=== PATIENT | male | born 1945 | race Caucasian/White ===

== ENCOUNTER 2023-07-18 08:58 | Inpatient (IN) | payer OTHER, SELFPAY ==
[2023-07-18] VITALS (15 sets, daily range): BP systolic 86–128; BP diastolic 53–88; BMI 26.6
--- NOTE | 2023-07-18 09:15 | PTCARENOTE ---
Rec'd Pt as transfer form [facility], A,A+O x3. denies pain, awaiting cardiac cath today
[2023-07-18] MEDS: LOPRESSOR 25 MG PO ×2 (10:47→19:58)
[2023-07-18] MEDS: LOW STRENGTH ASPIRIN 81 MG PO (10:47)
--- NOTE | 2023-07-18 11:07 | W.PN.CARDCBS ---
Today's Communication / Plan
-
LHC
PT/OT consults
Impression / Plan
-
This is the H&P summary.
Full H&P scanned into chart.
PCP: Juan J Aponte, DO
CDY: None prior to admission, seen by Dr. Christianson @[facility]
per daughter will f/u with [employer] (he is in [place])
Daughter- Vidya [phone]
HPI: This is a 77 y/o white male, PMH sig for HTN, HLD, DM, Hypothyroid, Parkinson's Disease w/mild ambulatory dysfunction, CKD3a, BPH. Lives in [place] in [place].
Presented to [facility] ER s/p fall at home d/t hypoglycemia, glucose 25. He felt dizzy and fell on his head, sustained right posterior parietal laceration/abrasion as well as right elbow abrasion, EMS was called. Has prior history of falls, but denies any
CP/palps/dyspnea/orthopnea, no syncope or dizziness.
HS troponin was sent with peak 1629. ROXIE noted initially with creat 2.23/GFR 30 (baseline is 1.2/59), now back to baseline. [facility] with severely calcified mid LAD. Loaded with Plavix and transferred today for LAD atherectomy/lithotripsy with stenting.
LHC 2/- severely calcified mid LAD 80-90%
residual non obstructive CAD in LCx, RCA
Echo 07/12- nml LVSF, EF 50-55%, inferoseptal HK, Grade I diastolic dysfunction, mild CLVH, mild dil Ao Root 3.9cm
IMPRESSION/PLAN:
NSTEMI/CAD
severely calcified mid LAD 80-90%- for atherectomy v. lithotripsy with stenting
started on DAPT w/asa, plavix- doses ordered for today
new start metoprolol tartrate 25mg BID
lisinopril held d/t ROXIE- likely can restart in AM if creat stable post dye load
echo results noted
cardiac rehab consult
family wants pt to followup w/[facility] as he's in their system- daughter has referral names and calling to set up followup appointments
ROXIE on CKD3a
creat back to baseline
monitor post dye load in AM
hold lisinopril until labs in AM
HLD- atorvastatin increased to 40mg
check lipid profile in AM
DM- no further hypoglycemia since admission- had been given IV Dexrose at the time
hold metformin 48h post dye load
continue insulins with ISS coverage
check HgbA1C
Parkinson's disease-
mild ambulatory dysfunction, will walk with cane at times
s/p fall with right posterior parietal hematoma/abrasion, right elbow abrasion
may need SNF at d/c- PT/OT consults ordered
case management consulted
continue PD meds
BPH- stable, continue meds
Hypothyroid- stable, continue meds
D/C planning- resides at [facility]
the facility has a SNF/Rehab area that he could go to if needed for a short stay
PT/OT/CM involved
will need transport- daughter is wheelchair bound and lives in [facility]
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
Subjective
Date of Service: July 18, 2023
Physical Exam
Physical Exam
VS: 128/82- 74 SR- 14- 100% RA
AAOx3, MAEE 10/15
RRR S1 S2 no murmurs
CTA bilat, non labored
soft abd, + bs
right radial cath site NURIA, no ht/bleeding, palpable pulse
bilat extremities w/palpable distal pulses, no edema
right posterior parietal HT with healing scabs and abrasion noted, soft golf-ball sized lump, tender but no bleeding or oozing
right elbow with dressing CDI
[2023-07-18] MEDS: PLAVIX 75 MG PO (11:41)
[2023-07-18] MEDS: NSS 516 ML IV (12:38)
[2023-07-18 12:46] LABS: Glucose - Point of Care 123 mg/dl (70-99)
--- NOTE | 2023-07-18 14:12 | CM ---
spoke to pt in room, he is prev indep, lives alone in an indep apt at [facility] in [facility]. PT/OT ordered, await determ. prob placement at [facility], they will have a bed for him. referral faxed by fax machine (not in allscripts). will
update with dc date. pt agreeable to this plan.
[2023-07-18 14:22] LABS: ACT-LR - POC 353 Seconds (116-155)
[2023-07-18 15:07] LABS: ACT-LR - POC 316 Seconds (116-155)
[2023-07-18 15:32] LABS: ACT-LR - POC 313 Seconds (116-155)
--- NOTE | 2023-07-18 15:55 | ITS.CL.ANGIO ---
Trolley Coach Driver - Angioplasty
Angioplasty
Procedure Report:
CARDIAC CATHETERIZATION REPORT
Date of Procedure: 07/18/2023
Referring: Vinny Christianson M.D.
INDICATION: Severely calcified, mid LAD 90% lesion on diagnostic catheterization for NSTEMI.
PROCEDURE:
1. Left-sided coronary angiography.
2. Successful CSI of the densely calcified 90% mid LAD lesion.
3. Successful PCI of the densely calcified 90% mid LAD lesion.
4. Aggressive post dilation of the underexpanded portion of the lesion.
5. Intracoronary lithotripsy.
ACCESS:
7 Angolan slender right radial artery.
CATHETERS:
1. 7 Angolan EBU 3.75 guiding catheter.
HEMODYNAMIC DATA
Weight (kg): 86.0
AO (s/d/x, mmHg): 124/81/99
LV (s/x mmHg): Not obtained.
LEFT VENTRICULOGRAPHY: Not performed.
CORONARY ANGIOGRAPHY
Dominance: Left.
Left Main: Normal size, bifurcating vessel. There is no coronary artery disease.
LAD: Normal size vessel giving rise to 1 notable diagonal. The entire LAD is encased in calcium. The contour of the vessel is visible without contrast injection. There is a densely calcified, long 50% lesion in the mid vessel culminating in a
90% lesion in the mid vessel.
Ramus: Congenitally absent.
Circumflex: Large size, dominant vessel giving rise to 2 obtuse marginals before terminating as an L PDA. There are luminal irregularities.
RCA: Not injected. Known to be a small, nondominant vessel.
INTERVENTION(S)
1. CSI of the densely calcified 90% mid LAD lesion.
2. Successful PCI of the entire mid LAD lesion (Xience Skypoint 2.25 x 33 TUAN, postdilated with a 2.5 NC balloon), with reduction in the 50% stenosis to 0% but incomplete dilation of the 90% lesion.
3. Aggressive post dilation of the underexpanded mid LAD lesion (2.5 NC balloon to 22 payal, 2.75 NC balloon to 26 payal, 3.0 NC balloon to 26 payal)
4. Intracoronary lithotripsy (3.0 x 12 shockwave balloon).
5. Final post dilation of the underexpanded mid LAD lesion (3.0 NC balloon to 26 payal for 90 seconds), with final reduction in stenosis to 50%.
Narrative:
The patient was transferred with intent of percutaneous coronary intervention of the densely calcified 90% mid LAD lesion. The 7Fr EBU 3.75 guiding catheter was advanced to the aortic root and seated in the left main coronary artery. Additional
heparin was given and a Power Turn Flex wire was advanced into the distal LAD. A quick cross microcatheter was advanced over the power turn flex wire using a wire pinning technique. The microcatheter was seated in the distal LAD and the power turn
flex wire was removed. A Viper wire was advanced into the distal LAD and the microcatheter was removed.
The CSI orbital atherectomy device was prepped on the back table and flushed with Viper slide. The device was loaded onto the Viper wire and brought up to the level of the catheter. An out of body test was successful. The CSI device was advanced
over the Viper wire up to the level of the coronary artery. Once the crown was positioned in place, orbital atherectomy was performed in the standard fashion with slow smooth passes. After each pass, the patient was given nitroglycerin 100 mcg
intracoronary. Brief angiography was performed to rule out dissection and perforation. The process was repeated 13 times times. Ultimately, the crown passed through the densely calcified 90% mid LAD lesion. The CSI device was withdrawn over the
Viper wire.
The 90% mid LAD lesion was predilated with a 2.0 x 12 semi-compliant balloon to 12 payal. The semi-compliant balloon was removed and a Xience Skypoint 2.25 x 33 drug-eluting stent was advanced. The stent was deployed at 12 atmospheres. The stent
balloon was removed. A 2.5 x 12 noncompliant balloon was advanced into the stent and the entire stent was postdilated to 12 atmospheres. Angiography was performed in orthogonal views, confirming good stent expansion and the majority of the artery
with focal underexpansion in the densely calcified focus. The 2.5 NC balloon was readvanced and the lesion was postdilated to 22 payal with minimal release. The NC balloon was removed and a 2.75 x 12 NC balloon was advanced. The underexpanded
segment was dilated to 24 payal with minimal release. This NC balloon was removed and a third 3.0 x 12 NC balloon was advanced. The 3.0 NC balloon was expanded to 26 payal, again with minimal release.
A Shockwave 3.0 x 12 coronary lithotripsy balloon was advanced over the wire and into the proximal portion of the calcified mid LAD lesion. Unfortunately, even with improved guide support, a guide liner and a stent in place, the shockwave balloon
would only advance part way into the underexpanded stent. The balloon was sterilely connected to the controller and prepped to negative pressure. Once in position, the balloon was inflated to 4 payal. After confirming good contact with the vessel
wall, 10 pulses were delivered. After delivering 10 pulses, the balloon was inflated to 6 payal then deflated. The entire lesion was treated in a similar manner for total of 3 rounds.
The shockwave balloon was withdrawn and the 2.75 x 12 NC balloon was readvanced. The lesion was dilated to 12 payal in an attempt to bring the GuideLiner further into the stented segment. In spite of numerous inflations in both the underexpanded
segment as well as the normalized segment, the GuideLiner refused to advance. The 2.75 NC balloon was withdrawn and a 3.0 x 15 NC balloon was advanced. The underexpanded segment was dilated to 27 payal. The more proximal segment was postdilated to
16 payal. Again, the guide liner would not advance and spite of this aggressive post dilation. This balloon was withdrawn and a third 3.0 x 15 NC balloon was advanced. Meticulous care was taken while positioning the balloon, ensuring that the body
of the balloon resided within the underexpanded stented segment. The underexpanded stent was postdilated to 26 payal for 90 seconds. In spite of this post dilation, the lesion refused to yield. The proximal stent was postdilated to 18 payal. This NC
balloon was withdrawn.
An extra-support wire was advanced as a wendy wire to the power turn flex. Unfortunately, the power turn flex wire lost position and was replaced with a BMW wire. With [address], the shockwave balloon was readvanced, but would not pass into
the underexpanded stent segment. After consultation with my colleagues, it became very clear that no further intervention would be successful. We elected to terminate the procedure at that time. Final angiography shows good stent expansion and
the mid LAD both proximal and distal to the densely calcified lesion and a reduction in the 90% stenosis to 50%. FADI-3 flow was maintained throughout.
The coronary wire was withdrawn and the guide was disengaged from the artery. The catheter was removed over a standard J-wire.
Closure Device: Vascular band.
Radiation (mGy): 910.23
DAP (cm2.Gy): 49.2977
Fluoroscopy time (minutes): 40.8
Sedation time (minutes): 142
CONCLUSIONS
1. Left dominant circulation with an LAD that is encased in calcium with a severe, 90% lesion in the mid vessel status post CSI, predilation, PCI (Xience Skypoint 2.25 x 33 TUAN) post dilation (2.5 NC balloon to 22 payal, 2.75 NC balloon to 26 payal and
a 3.0 NC balloon to 26 payal), intracoronary lithotripsy (3.0 x 12 shockwave balloon) and repeat post dilation (3.0 NC balloon to 26 payal for 90 seconds) with reduction in stenosis to 50%, successful treatment of the residual mid LAD disease,
maintaining FADI-3 flow.
2. Transient hypotension requiring intermittent norepinephrine.
RECOMMENDATIONS:
1. Expectant management after cardiac catheterization via right radial approach.
2. Limited weight bearing on the right wrist for one week.
3. Dual antiplatelet therapy with aspirin and ticagrelor. Would favor lifetime dual antiplatelet therapy given under expanded stent.
4. If the patient were to have residual angina or require revascularization, we could consider single-vessel CABG versus repeat cardiac catheterization from a femoral approach with an 8 Angolan EBU 4.5 guiding catheter to increase support. This
would likely require repeat coronary lithotripsy engaging the entire lesion.
5. Secondary prevention with high-dose, high potency statin.
6. Referral to cardiac rehab.
Copy to: Vinny Christianson M.D.
Johnathon Cordova DO, FACC, FACP
[2023-07-18 15:57] LABS: Glucose - Point of Care 144 mg/dl (70-99)
[2023-07-18] MEDS: NOVOLOG FLEXPEN-MODERATE RESISTANCE SC (16:00)
[2023-07-18] MEDS: NSS 1000 IV (16:01)
--- NOTE | 2023-07-18 16:05 | PTCARENOTE ---
Rec'd Pt post card cath, A,A+O X3, drowsy. Denies pain. R radial band intact, O2 sat 97% on RA
[2023-07-18] MEDS: SINEMET 25-100 1 TABLET PO ×2 (16:17→22:48)
[2023-07-18] MEDS: LIPITOR 40 MG PO (17:02)
[2023-07-18] MEDS: NOVOLOG MIX 70/30 FLEXPEN 15 UNITS SC (20:51)
[2023-07-18 21:33] LABS: Glucose - Point of Care 140 mg/dl (70-99)
[2023-07-18] MEDS: MINIPRESS 2 MG PO (22:48)
[2023-07-18] MEDS: FLOMAX 0.4 MG PO (22:48)
[2023-07-18] MEDS: DESYREL 100 MG PO (22:49)
[2023-07-18] MEDS: REMERON 30 MG PO (22:50)
[2023-07-19] VITALS (13 sets, daily range): BP systolic 87–118; BP diastolic 49–76; PULSE 72–86; O2SAT 98
--- NOTE | 2023-07-19 02:36 | PTCARENOTE ---
Denies any complaints of pain or discomfort. Voiding clear yellow urine into urinal. Right radial cath site wnl.
[2023-07-19 04:22] LABS: Hematocrit 35.6 % (39.0-52.0); Hemoglobin 12.2 g/dL (13.0-18.0); Mean Corp Hgb Conc. 34.3 g/dL (33.0-37.0); Mean Corpuscular Volume 93.4 fL (80.0-94.0); Mean Platelet Volume 9.9 fL (7.4-10.4); Platelet Count 226 10^3/uL (130-400); Red Blood Cell Count 3.81 10^6/uL (4.70-6.10); Red Cell Dist. Width 13.2 % (11.5-14.5); White Blood Cell Count 7.4 10^3/uL (4.8-10.8)
[2023-07-19 04:55] LABS: Blood Urea Nitrogen 22 mg/dl (9-20); Calcium 9.2 mg/dl (8.4-10.2); Carbon Dioxide 23 mmol/L (22-30); Chloride 105 mmol/L (98-107); Estimated Creatinine Clearance 53 ml/min; Glucose 89 mg/dl (70-99); HDL Cholesterol 63 mg/dl; LDL Cholesterol, Calculated 34 mg/dl; Potassium 4.2 mmol/L (3.5-5.1); Sodium 137 mmol/L (135-145); Total Cholesterol 112 mg/dl (50-199); Triglyceride 77 mg/dl (10-149); Very Low Density Lipoprotein 15 mg/dl (0-30); eGFR > 60.00
[2023-07-19 05:41] LABS: Hepatitis C Antibody Negative (Negative)
[2023-07-19] MEDS: SYNTHROID 100 MCG PO (06:45)
[2023-07-19 07:53] LABS: Glucose - Point of Care 87 mg/dl (70-99)
[2023-07-19] MEDS: PLAVIX 75 MG PO (07:55)
[2023-07-19] MEDS: SENOKOT-S 1 TABLET PO (07:55)
[2023-07-19] MEDS: LOPRESSOR 25 MG PO ×2 (07:55→20:29)
[2023-07-19] MEDS: LOW STRENGTH ASPIRIN 81 MG PO (07:55)
[2023-07-19] MEDS: ABILIFY 10 MG PO (07:56)
[2023-07-19] MEDS: LAMICTAL 150 MG PO (07:56)
[2023-07-19] MEDS: SINEMET 25-100 1 TABLET PO ×3 (07:57→22:26)
[2023-07-19] MEDS: NOVOLOG FLEXPEN-MODERATE RESISTANCE SC ×2 (08:06→17:11)
--- NOTE | 2023-07-19 08:08 | W.PN.CARDCBS ---
Addendum entered and electronically signed by Giorgio Sr MD 07/19/23 08:53:
-
I saw and examined the patient.
The HOTEL OR MOTEL ROOM SERVICE SUPERVISOR's note was reviewed and I agree with the note.
Comment: s/p successful PCI of LAD
he will be dc'd to SNF and followup with local Cardiol as noted
Original Note:
Today's Communication / Plan
-
PT/OT as needed
dc to SNF with transition back to independent living
will need cardiology for followup- daughter finding one in [place]
Impression / Plan
-
PCP: Juan J Aponte,
CDY: None prior to admission, seen by Dr. Christianson @[facility]
per daughter will f/u with [employer] (he is in [employer] system)
Daughter- Vidya [phone]
HPI: This is a 77 y/o white male, PMH sig for HTN, HLD, DM, Hypothyroid, Parkinson's Disease w/mild ambulatory dysfunction, CKD3a, BPH. Lives in [facility] in [place].
Presented to [facility] ER s/p fall at home d/t hypoglycemia, glucose 25. He felt dizzy and fell on his head, sustained right posterior parietal laceration/abrasion as well as right elbow abrasion, EMS was called. Has prior history of falls, but denies any
CP/palps/dyspnea/orthopnea, no syncope or dizziness.
HS troponin was sent with peak 1629. ROXIE noted initially with creat 2.23/GFR 30 (baseline is 1.2/59), now back to baseline. [facility] with severely calcified mid LAD. Loaded with Plavix and transferred today for LAD atherectomy/lithotripsy with stenting.
LHC 2/- severely calcified mid LAD 80-90%
residual non obstructive CAD in LCx, RCA
Echo 07/12- nml LVSF, EF 50-55%, inferoseptal HK, Grade I diastolic dysfunction, mild CLVH, mild dil Ao Root 3.9cm
IMPRESSION/PLAN:
NSTEMI/CAD
severely calcified mid LAD 80-90%- for atherectomy v. lithotripsy with stenting
started on DAPT w/asa, plavix- doses ordered for today
s/p mid LAD CSI with underexpansion, aggressive post dilation with subsequent lithotripsy, finally reduction in stenosis to 50%.
new start metoprolol tartrate 25mg BID- change to metoprolol xl 5/daily
lisinopril held d/t ROXIE- now improved but hypotensive overnight/this morning- hold today and resume at 5mg daily in AM
echo results noted
cardiac rehab consult
spoke with daughter- appt in August with Mandy Amin MD- cardiology at [facility] on [address]
ROXIE on CKD3a
creat stable post dye load
ok to restart lisinopril if BP allows
HLD- lipid profile noted, continue atorvastatin increased to 40mg
DM- no further hypoglycemia since admission- had been given IV Dextrose at the time
hold metformin 48h post dye load
continue insulins with ISS coverage
HgbA1C pending
Parkinson's disease-
mild ambulatory dysfunction, will walk with cane at times
s/p fall with right posterior parietal hematoma/abrasion, right elbow abrasion
may need SNF at d/c- PT/OT consults ordered
case management consulted
continue PD meds
BPH- stable, continue meds
Hypothyroid- stable, continue meds
D/C planning- resides at [facility] in [place]
the facility has a SNF/Rehab area that he will go to for short stay
PT/OT/CM involved
will need transport- daughter is wheelchair bound and lives in [facility]
anticipate dc later today
Progress Note - Portfolio Mgr
Subjective
Date of Service: July 19, 2023
Denies cp/palps/dyspnea
oob ambulating
radial cath site without pain
Objective
Labs:
07/19/23 04:08
07/19/23 04:08
Labs
Hgb 12.2 g/dL (13.0-18.0) L 07/19/23 04:08
Hct 35.6 % (39.0-52.0) L 07/19/23 04:08
Plt Count 226 10^3/uL (130-400) 07/19/23 04:08
Sodium 137 mmol/L (135-145) 07/19/23 04:08
Potassium 4.2 mmol/L (3.5-5.1) 07/19/23 04:08
BUN 22 mg/dl (9-20) H 07/19/23 04:08
Creatinine 1.2 mg/dL (0.7-1.3) 07/19/23 04:08
Glucose 89 mg/dl (70-99) 07/19/23 04:08
Vital Signs and I&O:
Vital Signs
Temp Pulse Resp BP Pulse Ox
97.5 F 69 18 99/63 96
07/19/23 07:48 07/19/23 07:48 07/19/23 07:48 07/19/23 03:57 07/19/23 07:48
Vital Signs
Temp Pulse Resp BP Pulse Ox
97.5 F 69 18 99/63 96
07/19/23 07:48 07/19/23 07:48 07/19/23 07:48 07/19/23 03:57 07/19/23 07:48
Intake & Output
07/17/23 07/18/23 07/19/23 07/20/23
06:59 06:59 06:59 06:59
Intake Total 640 / 640
Output Total 1350 / 1350
Balance -710 / -710
Physical Exam
Physical Exam
AAOx3, MAEE 5/5
RRR S1 S2 no murmurs
CTA bilat, non labored
soft abd, + bs
right radial cath site without ht/bleeding, non tender
bilat extremities w/palpable distal pulses, no edema
[2023-07-19 08:37] LABS: Glycohemoglobin (HgbA1c) 5.8 % (4.0-5.6)
[2023-07-19] MEDS: NOVOLOG MIX 70/30 FLEXPEN 15 UNITS SC ×2 (09:58→20:28)
--- NOTE | 2023-07-19 10:55 | W.DS.TRANS ---
DC Summary - Ocean Import Representative
-
Discharge Instructions:
Discharge Diagnosis/Procedures NSTEMI, s/p atherectomy and lithotripsy with
angioplasty and stent to Left Anterior
Descending artery
Diet Low Cholesterol,Diabetic, Carb Controlled
Driving Restrictions No driving
Other Services Cardiac Rehab
Stop these medications: HOLD metformin post cath- OK to resume on 2
/ in AM
Instructions:
Stand-Alone Forms: DC Instructions- Cath/EP Lab
Changes to Home Medications: Yes
Discharge Medications:
DC Medications w/original date entered in [employer]
aripiprazole 10 mg tablet 10 mg PO DAILY 07/18/23
aspirin 81 mg chewable tablet 81 mg PO DAILY 07/18/23
carbidopa 25 mg-levodopa 100 mg tablet 1 tab PO TID 07/18/23
insulin NPH-regular human 100 unit/mL (70-30) subcutaneous cartridge 15 unit SC BID 07/18/23
lamotrigine 150 mg tablet 150 mg PO DAILY 07/18/23
levothyroxine 100 mcg tablet 100 mcg PO DAILY 07/18/23
melatonin 5 mg tablet 5 mg PO HS PRN insomnia 07/18/23
metformin 1,000 mg tablet 1,000 mg PO BID 07/18/23
mirtazapine 30 mg tablet 30 mg PO HS 07/18/23
prazosin 2 mg capsule 2 mg PO HS 07/18/23
sennosides 8.6 mg-docusate sodium 50 mg tablet 1 tab-cap PO DAILY 07/18/23
tamsulosin 0.4 mg capsule 0.4 mg PO HS 07/18/23
trazodone 100 mg tablet 100 mg PO HS 07/18/23
atorvastatin 40 mg tablet 40 mg PO QPM #90 tabs 07/19/23
clopidogrel 75 mg tablet 75 mg PO DAILY #90 tabs 07/19/23
lisinopril 5 mg tablet 5 mg PO DAILY #90 tabs 07/19/23
metoprolol succinate 25 mg tablet,extended release 24 hr 25 mg PO DAILY #90 tabs 07/19/23
nitroglycerin 0.4 mg sublingual tablet 0.4 mg sublingual [id number] PRN chest pain #25 tabs 07/19/23
Home Medication Changes
NEW: plavix, metoprolol xl, nitrostat
DOSE INCREASE: atorvastatin
DOSE DECREASE: lisinopril
Pending Results: No
[2023-07-19 12:13] LABS: Glucose - Point of Care 173 mg/dl (70-99)
[2023-07-19 12:29] LABS: ACT-LR - POC > 397 Seconds (116-155)
[2023-07-19] MEDS: NOVOLOG FLEXPEN-MODERATE RESISTANCE 1 UNITS SC (12:46)
--- NOTE | 2023-07-19 14:05 | PTCARENOTE ---
Pt sitting OOB in chair for most of the morning, denies pain. VSS
--- NOTE | 2023-07-19 16:41 | CM ---
pt tp be transfered to [facility] tomorrow, p/u at 10am. daughter is arranging payment. pt agreeable to this plan. auth# [id number]- 6 days skilled . confirmed bed avail for tomorrow.
[2023-07-19 17:11] LABS: Glucose - Point of Care 133 mg/dl (70-99)
[2023-07-19] MEDS: LIPITOR 40 MG PO (17:27)
[2023-07-19 20:32] LABS: Glucose - Point of Care 171 mg/dl (70-99)
--- NOTE | 2023-07-19 20:50 | PTCARENOTE ---
assumed care of patient at the change of shift. patient resting in the chair. assisted patient back to bed, standby assist with the walker. generalized weakness noted. patient denies any pain. denies sob. Sinus arrhythmia noted on tele 70s. bp
stable. R radial site RADIOLOGY TECH, + radial pulse. reviewed plan of care with patient and verbalized understanding. call ham within reach. calls appropriately.
[2023-07-19 21:48] LABS: Glucose - Point of Care 141 mg/dl (70-99)
[2023-07-19] MEDS: FLOMAX 0.4 MG PO (22:26)
[2023-07-19] MEDS: DESYREL 100 MG PO (22:26)
[2023-07-19] MEDS: MINIPRESS 2 MG PO (22:26)
[2023-07-19] MEDS: REMERON 30 MG PO (22:26)
[2023-07-20 04:53] VITALS: BP 107/62
[2023-07-20 06:00] VITALS: BMI 26.5
[2023-07-20 07:12] VITALS: BP 94/49
[2023-07-20 07:15] LABS: Glucose - Point of Care 58 mg/dl (70-99)
[2023-07-20 07:49] LABS: Glucose - Point of Care 74 mg/dl (70-99)
--- NOTE | 2023-07-20 08:13 | W.PN.CD ---
Today's Communication / Plan
-
-
Tx to inpt SNF today
Impression / Plan
-
PCP: Juan J Aponte, DO
CDY: None prior to admission, seen by Dr. Christianson @[facility]
per daughter will f/u with [facility] (he is in [employer] system)
Daughter- Vidya [phone]
HPI: This is a 77 y/o white male, PMH sig for HTN, HLD, DM, Hypothyroid, Parkinson's Disease w/mild ambulatory dysfunction, CKD3a, BPH. Lives in [facility] in [place].
Presented to [facility] ER s/p fall at home d/t hypoglycemia, glucose 25. He felt dizzy and fell on his head, sustained right posterior parietal laceration/abrasion as well as right elbow abrasion, EMS was called. Has prior history of falls, but denies any
CP/palps/dyspnea/orthopnea, no syncope or dizziness.
HS troponin was sent with peak 1629. ROXIE noted initially with creat 2.23/GFR 30 (baseline is 1.2/59), now back to baseline. [facility] with severely calcified mid LAD. Loaded with Plavix and transferred today for LAD atherectomy/lithotripsy with stenting.
LHC 07/14- severely calcified mid LAD 80-90%
residual non obstructive CAD in LCx, RCA
Echo 07/12- nml LVSF, EF 50-55%, inferoseptal HK, Grade I diastolic dysfunction, mild CLVH, mild dil Ao Root 3.9cm
IMPRESSION/PLAN:
NSTEMI/CAD
severely calcified mid LAD 80-90%- for atherectomy v. lithotripsy with stenting
started on DAPT w/asa, plavix- doses ordered for today
s/p mid LAD CSI with underexpansion, aggressive post dilation with subsequent lithotripsy, finally reduction in stenosis to 50%.
new start metoprolol tartrate 25mg BID- change to metoprolol xl 5/daily
lisinopril held d/t ROXIE- now improved but mildly hypotensive - will not restart lisinopril as yet
echo results noted
cardiac rehab consult - he has a spot for oinpt rehab as of today 07/20/23
our team has spoke with daughter- appt in August with Mandy Amin MD- cardiology at [facility] on [address]
ROXIE on CKD3a
creat stable post dye load
eventually consider restart DALY, but BP too low at present
HLD- lipid profile noted, continue atorvastatin increased to 40mg
DM- no further hypoglycemia since admission- had been given IV Dextrose at the time
hold metformin 48h post dye load
continue insulins with ISS coverage
HgbA1C pending
Parkinson's disease-
ambulatory dysfunction, will walk with cane at times
s/p fall with right posterior parietal hematoma/abrasion, right elbow abrasion
continue PD meds
plan for inpt Rehab/SNF
BPH- stable, continue meds
Hypothyroid- stable, continue meds
D/C planning- resides at [facility] in [place]
the facility has a SNF/Rehab area that he will go to for short stay
PT/OT/CM involved
will need transport- daughter is wheelchair bound and lives in [facility]
anticipate dc today
Physical Exam
Vital Signs/Labs
Vital Signs
Temp Pulse Resp BP Pulse Ox
97.8 F 74 20 107/62 98
07/20/23 07:10 07/20/23 04:53 07/20/23 07:10 07/20/23 04:53 07/20/23 07:10
07/19/23 07/20/23 07/21/23
06:59 06:59 06:59
Actual Weight 179 lb 14.355 oz
07/19/23 04:08
07/19/23 04:08
Triglycerides 77 mg/dl (10-149) 07/19/23 04:08
LDL Cholesterol, Calc 34 mg/dl 07/19/23 04:08
VLDL Cholesterol, Calc 15 mg/dl (0-30) 07/19/23 04:08
HDL Cholesterol 63 mg/dl 07/19/23 04:08
Physical Exam
Constitutional: No acute distress
Cardiovascular: Rhythm & rate is regular and Pedal edema is absent
Respiratory: Respiratory effort normal and Lungs clear to auscul.
Data Reviewed
-
Date of Service: July 20, 2023
Medical Decision Making: Reviewed Test Results
EKG: Tracing Personally Visualized and interpreted
Labs: Labs Reviewed by me
[2023-07-20] MEDS: SYNTHROID 100 MCG PO (08:33)
[2023-07-20] MEDS: PLAVIX 75 MG PO (08:33)
[2023-07-20 08:34] VITALS: BP 112/55
[2023-07-20] MEDS: SINEMET 25-100 1 TABLET PO (08:34)
[2023-07-20] MEDS: LOW STRENGTH ASPIRIN 81 MG PO (08:34)
[2023-07-20] MEDS: ABILIFY 10 MG PO (08:34)
[2023-07-20] MEDS: SENOKOT-S 1 TABLET PO (08:34)
[2023-07-20] MEDS: LOPRESSOR 25 MG PO (08:35)
[2023-07-20] MEDS: LAMICTAL 150 MG PO (08:35)
[2023-07-20] MEDS: NOVOLOG MIX 70/30 FLEXPEN SC (08:36)
[2023-07-20] MEDS: NOVOLOG FLEXPEN-MODERATE RESISTANCE SC (08:36)
--- NOTE | 2023-07-20 09:20 | CM ---
CM following for DC planning needs.
Plan for DC today to [facility]. Auth rec'd (auth# [id number]).
Met w/ patient at bedside. Patient feels well, is prepared for DC.
Plan is for SNF @ [facility].
RN report: [phone]
--- NOTE | 2023-07-20 09:54 | PTCARENOTE ---
pt has been Sinus arrhythmia on the monitor, hr in the 80s, vss. pt offers no complaints at this time. pt educated on plan of care for the morning and pt verbalized understanding.
report called for rehab, 0907/20/23. d/c instructions read and faxed to facility. IV and tele removed. pt left with belongings from room, d/c instructions and educational material.
== END 2023-07-20 10:33 | DRG 324 ==
LOC: IVU 08:58
PROVIDERS: Nurse Practitioner; ADMITTING PHYSICIAN Internal Medicine Cardiovascular Disease
PROC: 3E033XZ Introduction of Vasopressor into Peripheral Vein, Percutaneous Approach (ICD-10-PCS; 2023-07-18)
PROC: 027034Z Dilation of Coronary Artery, One Artery with Drug-eluting Intraluminal Device, Percutaneous Approach (ICD-10-PCS; 2023-07-18)
PROC: 4A023N7 Measurement of Cardiac Sampling and Pressure, Left Heart, Percutaneous Approach (ICD-10-PCS; 2023-07-18)
PROC: B2111ZZ Fluoroscopy of Multiple Coronary Arteries using Low Osmolar Contrast (ICD-10-PCS; 2023-07-18)
PROC: 02F03ZZ Fragmentation in Coronary Artery, One Artery, Percutaneous Approach (ICD-10-PCS; 2023-07-18)
DX: I21.4 Non-ST elevation (NSTEMI) myocardial infarction (principal); N17.9 Acute kidney failure, unspecified; I25.10 Atherosclerotic heart disease of native coronary artery without angina pectoris; N18.31 Chronic kidney disease, stage 3a; E78.5 Hyperlipidemia, unspecified; E11.649 Type 2 diabetes mellitus with hypoglycemia without coma; G20.A1 Parkinson's disease without dyskinesia, without mention of fluctuations; R26.2 Difficulty in walking, not elsewhere classified; E03.9 Hypothyroidism, unspecified; N40.0 Benign prostatic hyperplasia without lower urinary tract symptoms; I12.9 Hypertensive chronic kidney disease with stage 1 through stage 4 chronic kidney disease, or unspecified chronic kidney disease; E11.22 Type 2 diabetes mellitus with diabetic chronic kidney disease; W01.10XA Fall on same level from slipping, tripping and stumbling with subsequent striking against unspecified object, initial encounter; Y93.9 Activity, unspecified; I77.810 Thoracic aortic ectasia; Y92.009 Unspecified place in unspecified non-institutional (private) residence as the place of occurrence of the external cause; S50.311A Abrasion of right elbow, initial encounter; S01.01XA Laceration without foreign body of scalp, initial encounter; I95.9 Hypotension, unspecified; Z79.890 Hormone replacement therapy; Z79.82 Long term (current) use of aspirin; Z79.84 Long term (current) use of oral hypoglycemic drugs; Z79.02 Long term (current) use of antithrombotics/antiplatelets
CPT/HCPCS: 80048; 80061; 82962; 83036; 85027; 85347; 86803; 87070; 92972; 93005; 93454; 97162; 97166; C1724; C1725; C1769; C1874; C1887; C1894; C9602; Q9967